=== PATIENT | female | born 1930 | race Caucasian/White ===

== ENCOUNTER 2018-08-14 18:31 | Emergency (ER) | payer MEDICARE, OTHER ==
[~2018-08-14] VITALS: Ht 147.3 cm; Wt 67.8 kg
[2018-08-14] MEDS ORDERED: BISOPRL/HCTZ (18:41)
[2018-08-14] MEDS ORDERED: SIMV20TA2 (18:41)
[2018-08-14] MEDS ORDERED: WARF-20 (18:41)
[2018-08-14] MEDS ORDERED: LEVO50TA5 (18:41)
[2018-08-14 20:17] LABS: BASO # 0.1 10^3/uL (0.0-0.2); BASO % 0.7 % (0.0-1.0); EOS # 0.2 10^3/uL (0.0-0.50); EOS % 1.4 % (0.0-3.0); HEMOGLOBIN 13.5 g/dl (12.0-15.5); LYMPH # 1.7 10^3/uL (1.5-4.5); LYMPH % 15.4 % (24.0-44.0); MEAN CORPUSCULAR HEMOGLOBIN 29.3 pg (27.0-33.0); MEAN CORPUSCULAR HGB CONC 32.1 g/dl (32.0-36.5); MEAN CORPUSCULAR VOLUME 91.3 fl (80.0-96.0); MONO % 9.4 % (0.0-5.0); NEUTROPHILS # 8.1 10^3/uL (1.8-7.7); NEUTROPHILS % 72.7 % (36.0-66.0); PLATELET COUNT, AUTOMATED 261 10^3/uL (150-450); WHITE BLOOD COUNT 11.1 10^3/uL (4.0-10.0)
[2018-08-14] MEDS: PHYTONADIONE 10MG/ML INJECTION (J3430) SC ONE (20:30)
[2018-08-14 20:32] LABS: INR 2.3; PROTHROMBIN TIME 25.7 SECONDS (12.1-14.4)
[2018-08-14 21:48] VITALS: BP 150/67
== END 2018-08-14 21:41 | disposition home or self-care (01) ==
LOC: M ED 18:31
DX: S09.20XA Traumatic rupture of unspecified ear drum, initial encounter (principal); Y99.9 Unspecified external cause status; I10 Essential (primary) hypertension; E78.5 Hyperlipidemia, unspecified; Z79.01 Long term (current) use of anticoagulants
CPT/HCPCS: 85025; 85610; 99283; J3430